=== PATIENT | female | born 1935 | race Two or more races ===

== ENCOUNTER 2024-04-11 11:22 | Inpatient (IN) | payer OTHER ==
[~2024-04-11] VITALS: Ht 132.1 cm; Wt 53.8 kg
[2024-04-11] MEDS ORDERED: BENA20TA9 PO (11:45)
[2024-04-11] MEDS ORDERED: CLON0.1T PO (11:45)
[2024-04-11] MEDS ORDERED: METF-495 PO (11:45)
[2024-04-11] MEDS ORDERED: MEMA10TA PO (11:45)
[2024-04-11] MEDS ORDERED: HYDR25TA4 PO (11:45)
[2024-04-11 12:08] LABS: BASOPHILS % (AUTO) 0.3 % (0.0-2.0); HEMATOCRIT 40.2 % (31.2-41.9); HEMOGLOBIN 13.7 g/dL (10.9-14.3); LYMPHOCYTES # (AUTO) 1.3 K/uL (0.8-4.8); LYMPHOCYTES % (AUTO) 8.9 % (20.5-51.5); MEAN CORPUSCULAR HEMOGLOBIN 31.5 uug (24.7-32.8); MEAN CORPUSCULAR HGB CONC 34 g/dL (32.3-35.6); MEAN CORPUSCULAR VOLUME 92.8 fL (75.5-95.3); MONOCYTES # (AUTO) 1.1 K/uL (0.1-1.30); MONOCYTES % (AUTO) 7.4 % (0.0-11.0); NEUTROPHILS # (AUTO) 12.2 K/uL (1.8-8.9); NEUTROPHILS % (AUTO) 83.4 % (38.5-71.5); PLATELET COUNT (AUTO) 187 K/uL (179-408); RED BLOOD CELL COUNT(AUTO) 4.33 MIL/uL (3.63-4.92); WHITE BLOOD COUNT (AUTO) 14.7 K/uL (3.8-11.8)
[2024-04-11 12:30] LABS: CALCIUM 9.4 mg/dL (8.5-10.1); CARBON DIOXIDE 29 mmol/L (21-32); CHLORIDE 98 mmol/L (98-107); GLUCOSE 227 mg/dL (74-106); POTASSIUM 3.5 mmol/L (3.5-5.1); SODIUM SERUM 142 mmol/L (136-145); UREA NITROGEN, BLOOD 37 mg/dL (7-18)
[2024-04-11 12:36] LABS: ALANINE AMINOTRANSFERASE 18 U/L (14-59); ALBUMIN 3.3 g/dL (3.4-5.0); ALKALINE PHOSPHATASE 87 U/L (50-136); ASPARTATE AMINOTRANSFERASE 26 U/L (15-37); BILIRUBIN,DIRECT 0.4 mg/dL (0.0-0.2); BILIRUBIN,TOTAL 1.2 mg/dL (0.2-1.0); NT-PRO BNP 3095 pg/mL (0-125); TOTAL PROTEIN, SERUM 8.7 g/dL (6.4-8.2)
[2024-04-11 12:39] LABS: *BILIRUBIN,URIN NEGATIVE (NEGATIVE); *CLARITY,URINE CLEAR (CLEAR); *COLOR,URINE YELLOW (YELLOW); *KETONES,URINE TRACE (NEGATIVE); *PROTEIN,URINE 2+ (NEGATIVE); *UROBILINOGEN,URINE 0.2 E.U./dl (NORMAL); LEUKOCYTE ESTERASE ,URINE NEGATIVE (NEGATIVE); NITRITE, URINE NEGATIVE (NEGATIVE); UGLUCOSE NEGATIVE (NEGATIVE)
[2024-04-11 12:40] LABS: LACTIC ACID 2.4 mmol/L (0.4-2.0)
[2024-04-11 12:41] LABS: *BLOOD, URINE TRACE (NEGATIVE)
[2024-04-11] MEDS ORDERED: MAGNESIUM SULFATE/D5W 200 ML ONE (12:45)
[2024-04-11] MEDS: MAGNESIUM SULFATE/D5W 100 ML IV SCH (12:53)
[2024-04-11 13:10] LABS: BACTERIA,URINE MODERATE /HPF (NONE SEEN); RBC,URINE 0-3 /HPF (0-3); WBC,URINE 0-3 /HPF (0-3)
[2024-04-11] MEDS ORDERED: MAGNESIUM HYDROXIDE 30 ML LIQUID UDC PO PRN (15:45)
[2024-04-11] MEDS ORDERED: CLONIDINE HCL 0.1 MG TABLET PO PRN (15:45)
[2024-04-11] MEDS ORDERED: ONDANSETRON 4 MG/2 ML VIAL IV PRN (15:45)
[2024-04-11] MEDS ORDERED: PIPERACILLIN/TAZO 2.25 G in IV DEXTROSE 5% 50 ML IV SCH (15:45)
[2024-04-11] MEDS ORDERED: METF-442 PO (16:16)
[2024-04-11] MEDS: PIPERACILLIN SODIUM/TAZOBACTAM 3.375 G in IV DEXTROSE 5% 100 ML IV SCH (16:58)
[2024-04-11] MEDS ORDERED: DEXTROSE 50% 50 ML DISP.SYRIN IV PRN (17:00)
[2024-04-11] MEDS: IV NS 1000 ML 1,000 ML IV PRN (18:20)
[2024-04-11 18:34] VITALS: BP 141/95; TEMP 98.1; O2SAT 98
[2024-04-11 19:00] VITALS: BP 102/51; TEMP 102; O2SAT 94
[2024-04-11] MEDS: ACETAMINOPHEN 325 MG TABLET PO PRN (19:56)
[2024-04-11] MEDS: INSULIN REGULAR, HUMAN 1000 UNIT/10 ML VIAL SQ PRN (20:52)
[2024-04-11] MEDS: BLOOD SUGAR DIAGNOSTIC 1 EACH STRIP VI SCH (20:54)
[2024-04-12] VITALS: BP 108/38; TEMP 98.3; O2SAT 96
[2024-04-12 04:00] VITALS: BP 122/54; TEMP 101.1; O2SAT 96
[2024-04-12 06:55] LABS: BASOPHILS % (AUTO) 0.3 % (0.0-2.0); DIFFERENTIAL COMMENT 0; EOSINOPHILS % (AUTO) 0.1 % (0.0-7.0); HEMATOCRIT 35.2 % (31.2-41.9); LYMPHOCYTES % (AUTO) 9.1 % (20.5-51.5); MEAN CORPUSCULAR HEMOGLOBIN 31.3 uug (24.7-32.8); MEAN CORPUSCULAR HGB CONC 34 g/dL (32.3-35.6); MEAN CORPUSCULAR VOLUME 92.2 fL (75.5-95.3); MONOCYTES # (AUTO) 0.8 K/uL (0.1-1.30); MONOCYTES % (AUTO) 6.8 % (0.0-11.0); NEUTROPHILS # (AUTO) 9.5 K/uL (1.8-8.9); NEUTROPHILS % (AUTO) 83.7 % (38.5-71.5); PLATELET COUNT (AUTO) 161 K/uL (179-408); RED BLOOD CELL COUNT(AUTO) 3.82 MIL/uL (3.63-4.92); RED CELL DISTRIBUTION WIDTH 13.8 % (12.3-17.7); WHITE BLOOD COUNT (AUTO) 11.4 K/uL (3.8-11.8)
[2024-04-12 07:14] LABS: ALANINE AMINOTRANSFERASE 15 U/L (14-59); ALBUMIN 2.6 g/dL (3.4-5.0); ALKALINE PHOSPHATASE 62 U/L (50-136); ASPARTATE AMINOTRANSFERASE 27 U/L (15-37); BILIRUBIN,TOTAL 0.9 mg/dL (0.2-1.0); CALCIUM 8.4 mg/dL (8.5-10.1); CARBON DIOXIDE 28 mmol/L (21-32); CHLORIDE 102 mmol/L (98-107); CREATININE 1.8 mg/dL (0.6-1.3); GLUCOSE 210 mg/dL (74-106); MAGNESIUM 2.4 mg/dL (1.8-2.4); PHOSPHOROUS 3.1 mg/dL (2.5-4.9); SODIUM SERUM 141 mmol/L (136-145); TOTAL PROTEIN, SERUM 6.8 g/dL (6.4-8.2); UREA NITROGEN, BLOOD 40 mg/dL (7-18)
[2024-04-12 07:55] VITALS: BP 97/52; TEMP 98.3; O2SAT 98
[2024-04-12] MEDS: MEMANTINE HCL 10 MG TABLET PO SCH (08:40)
[2024-04-12] MEDS: POTASSIUM CHLORIDE 10 MEQ TAB.PRT.SR PO ONE (10:49)
[2024-04-12 11:55] VITALS: BP 106/52; TEMP 97.7; O2SAT 97
[2024-04-12] MEDS: POTASSIUM CHLORIDE 20 MEQ TAB.PRT.SR PO ONE (12:24)
[2024-04-12 15:39] VITALS: BP 111/62; TEMP 97.6; O2SAT 99
[2024-04-12] MEDS ORDERED: OSELTAMIVIR PHOSPHATE 75 MG CAPSULE PO SCH (16:30)
[2024-04-12] MEDS: GUAIFENESIN/DEXTROMETHORPHAN 5 ML UDC PO PRN (16:56)
[2024-04-12] MEDS: REMEDY ESSENTIAL ZINC PASTE 113 GM TP PRN (16:57)
[2024-04-12] MEDS: OSELTAMIVIR NG/GT 30 MG/5 ML LIQ PO SCH (18:32)
[2024-04-12 20:40] VITALS: BP 122/44; TEMP 98.4; O2SAT 97
[2024-04-12] MEDS: REMEDY ESSENTIAL ZINC PASTE 113 GM TP SCH (21:29)
[2024-04-12] MEDS: AZITHROMYCIN 250 MG TABLET PO ONE (21:31)
[2024-04-13 01:37] VITALS: O2SAT 95
[2024-04-13 06:04] VITALS: BP 112/68; TEMP 100.3; O2SAT 96
[2024-04-13 07:05] LABS: BASOPHILS % (AUTO) 0.3 % (0.0-2.0); EOSINOPHILS # (AUTO) 0.1 K/uL (0.0-0.7); HEMATOCRIT 34.6 % (31.2-41.9); HEMOGLOBIN 11.9 g/dL (10.9-14.3); LYMPHOCYTES # (AUTO) 1.3 K/uL (0.8-4.8); LYMPHOCYTES % (AUTO) 15.7 % (20.5-51.5); MEAN CORPUSCULAR HEMOGLOBIN 31.8 uug (24.7-32.8); MEAN CORPUSCULAR HGB CONC 34 g/dL (32.3-35.6); MEAN CORPUSCULAR VOLUME 92.7 fL (75.5-95.3); MONOCYTES # (AUTO) 0.6 K/uL (0.1-1.30); NEUTROPHILS # (AUTO) 6.1 K/uL (1.8-8.9); PLATELET COUNT (AUTO) 163 K/uL (179-408); RED BLOOD CELL COUNT(AUTO) 3.74 MIL/uL (3.63-4.92)
[2024-04-13 07:11] LABS: CALCIUM 8.4 mg/dL (8.5-10.1); CARBON DIOXIDE 27 mmol/L (21-32); CHLORIDE 104 mmol/L (98-107); CREATININE 1.3 mg/dL (0.6-1.3); GLUCOSE 112 mg/dL (74-106); POTASSIUM 3.9 mmol/L (3.5-5.1); SODIUM SERUM 141 mmol/L (136-145); UREA NITROGEN, BLOOD 26 mg/dL (7-18)
[2024-04-13 07:25] LABS: DIFFERENTIAL COMMENT 1
[2024-04-13 08:35] VITALS: O2SAT 96
[2024-04-13] MEDS: MIRALAX 17 GM POWD.PACK PO SCH (08:41)
[2024-04-13] MEDS: GLUCERNA SHAKE 237 ML CAN PO SCH (08:43)
[2024-04-13 11:42] VITALS: BP 120/57; TEMP 97.8; O2SAT 98
[2024-04-13 15:28] VITALS: BP 139/58; TEMP 97.6; O2SAT 99
[2024-04-13 19:15] VITALS: BP 139/64; TEMP 98.2; O2SAT 95
[2024-04-13] MEDS: AZITHROMYCIN 250 MG TABLET PO SCH (21:15)
[2024-04-14 06:10] VITALS: BP 137/95; TEMP 98.3; O2SAT 98
[2024-04-14 06:21] LABS: BASOPHILS % (AUTO) 0.4 % (0.0-2.0); EOSINOPHILS # (AUTO) 0.3 K/uL (0.0-0.7); EOSINOPHILS % (AUTO) 5.4 % (0.0-7.0); HEMATOCRIT 31.4 % (31.2-41.9); HEMOGLOBIN 10.8 g/dL (10.9-14.3); LYMPHOCYTES # (AUTO) 1.9 K/uL (0.8-4.8); LYMPHOCYTES % (AUTO) 33.2 % (20.5-51.5); MEAN CORPUSCULAR HEMOGLOBIN 31.9 uug (24.7-32.8); MEAN CORPUSCULAR HGB CONC 34 g/dL (32.3-35.6); MEAN CORPUSCULAR VOLUME 92.8 fL (75.5-95.3); MONOCYTES # (AUTO) 0.6 K/uL (0.1-1.30); MONOCYTES % (AUTO) 9.5 % (0.0-11.0); NEUTROPHILS % (AUTO) 51.5 % (38.5-71.5); PLATELET COUNT (AUTO) 167 K/uL (179-408); RED BLOOD CELL COUNT(AUTO) 3.38 MIL/uL (3.63-4.92); WHITE BLOOD COUNT (AUTO) 5.8 K/uL (3.8-11.8)
[2024-04-14 06:44] LABS: CALCIUM 8.7 mg/dL (8.5-10.1); CARBON DIOXIDE 25 mmol/L (21-32); CHLORIDE 107 mmol/L (98-107); GLUCOSE 91 mg/dL (74-106); POTASSIUM 3.5 mmol/L (3.5-5.1); SODIUM SERUM 143 mmol/L (136-145); UREA NITROGEN, BLOOD 19 mg/dL (7-18)
[2024-04-14 07:13] LABS: DIFFERENTIAL COMMENT 1
[2024-04-14 07:15] VITALS: BP 160/59; TEMP 98.3; O2SAT 100
[2024-04-14 11:08] VITALS: BP 156/60; TEMP 97.6; O2SAT 100
[2024-04-14 14:09] VITALS: O2SAT 97
[2024-04-14 15:26] VITALS: BP 106/61; TEMP 96.9; O2SAT 100
[2024-04-15 03:54] VITALS: O2SAT 96
[2024-04-15 06:13] VITALS: BP 124/47; TEMP 97.8; O2SAT 95
[2024-04-15 06:40] LABS: BASOPHILS % (AUTO) 0.5 % (0.0-2.0); EOSINOPHILS # (AUTO) 0.2 K/uL (0.0-0.7); EOSINOPHILS % (AUTO) 4.7 % (0.0-7.0); HEMOGLOBIN 11.4 g/dL (10.9-14.3); LYMPHOCYTES % (AUTO) 39.1 % (20.5-51.5); MEAN CORPUSCULAR HEMOGLOBIN 31.7 uug (24.7-32.8); MEAN CORPUSCULAR HGB CONC 35 g/dL (32.3-35.6); MEAN CORPUSCULAR VOLUME 91.5 fL (75.5-95.3); MONOCYTES # (AUTO) 0.4 K/uL (0.1-1.30); MONOCYTES % (AUTO) 8.8 % (0.0-11.0); NEUTROPHILS # (AUTO) 2.4 K/uL (1.8-8.9); NEUTROPHILS % (AUTO) 46.9 % (38.5-71.5); PLATELET COUNT (AUTO) 176 K/uL (179-408); RED CELL DISTRIBUTION WIDTH 13.4 % (12.3-17.7); WHITE BLOOD COUNT (AUTO) 5.1 K/uL (3.8-11.8)
[2024-04-15 06:51] LABS: CARBON DIOXIDE 27 mmol/L (21-32); CHLORIDE 107 mmol/L (98-107); CREATININE 0.8 mg/dL (0.6-1.3); GLUCOSE 122 mg/dL (74-106); POTASSIUM 3.3 mmol/L (3.5-5.1); SODIUM SERUM 143 mmol/L (136-145); UREA NITROGEN, BLOOD 13 mg/dL (7-18)
[2024-04-15 06:52] LABS: DIFFERENTIAL COMMENT 1
[2024-04-15] MEDS ORDERED: OSEL75CA PO (09:01)
[2024-04-15] MEDS ORDERED: AZIT250T13 PO (09:01)
[2024-04-15 11:56] VITALS: BP 124/45; TEMP 97.5; O2SAT 99
[2024-04-15] MEDS: POTASSIUM CHLORIDE 20 MEQ TAB.PRT.SR PO ONE (12:11)
[2024-04-15 12:49] VITALS: O2SAT 97
== END 2024-04-15 13:25 | disposition home health service (06) | DRG 139 ==
LOC: ER 11:29 → TRANSITION 15:53 → TELE3 17:40 → MEDSURG3 04-12 14:00
PROVIDERS: ADMIT Nurse Practitioner Acute Care; ATTEND Nurse Practitioner Acute Care
DX: J10.08 Influenza due to other identified influenza virus with other specified pneumonia (principal); N17.0 Acute kidney failure with tubular necrosis; G93.41 Metabolic encephalopathy; E43 Unspecified severe protein-calorie malnutrition; R64 Cachexia; E87.20 Acidosis, unspecified; F03.90 Unspecified dementia, unspecified severity, without behavioral disturbance, psychotic disturbance, mood disturbance, and anxiety; J81.1 Chronic pulmonary edema; J10.1 Influenza due to other identified influenza virus with other respiratory manifestations; E86.0 Dehydration; J15.69 Pneumonia due to other Gram-negative bacteria; J20.9 Acute bronchitis, unspecified; J10.2 Influenza due to other identified influenza virus with gastrointestinal manifestations; E78.5 Hyperlipidemia, unspecified; R62.7 Adult failure to thrive; Z68.31 Body mass index [BMI] 31.0-31.9, adult; E66.01 Morbid (severe) obesity due to excess calories; Z79.84 Long term (current) use of oral hypoglycemic drugs; Z79.899 Other long term (current) drug therapy; I10 Essential (primary) hypertension; E11.9 Type 2 diabetes mellitus without complications; R74.01 Elevation of levels of liver transaminase levels; K57.30 Diverticulosis of large intestine without perforation or abscess without bleeding
CPT/HCPCS: 36415; 71045; 83605; 83735; 84100; 84484; 85025; 87040; 87086; 93307; 94760; A4606; A4663; A6213; G0378; J1815; J2543; J3475; J7040; Q0144